=== PATIENT | male | born 1990 | race Caucasian/White ===

== ENCOUNTER 2019-02-14 23:25 | Emergency (ER) | payer SELFPAY ==
[~2019-02-14] VITALS: Ht 172.7 cm; Wt 64.9 kg
[2019-02-14 23:25] VITALS: BP 151/107
--- NOTE | 2019-02-14 23:25 | NUR ---
PT ON BED DELAY IN [facility] WITH [facility].
--- NOTE | 2019-02-14 23:38 | NUR ---
PT SADAF ALS. TAKEN TO BED 4
--- NOTE | 2019-02-14 23:38 | NUR ---
PT TRANSFERED FROM [facility] TO BED 4.
--- NOTE | 2019-02-14 23:41 | NUR ---
Dr. Osei examining patient.
[2019-02-14] MEDS ORDERED: LORazepam 2 MG/ML VIAL IVP ONE (23:50)
[2019-02-14] MEDS ORDERED: NACL 0.9% 1,000 ML IV ONE (23:50)
--- NOTE | 2019-02-14 23:50 | NUR ---
PT REMOVED IV, PIV INTACT. PT AGITATED, DOES NOT WANT A NEW IV, PT STATES HE DOES NOT WANT TO BE TOUCHED AND "LEAVE ME ALONE AND LET ME BREATHE IM RUNNING IN MY MIND".
--- NOTE | 2019-02-14 23:50 | NUR ---
PT BIBA C/O ALOC, PER EMS PT WAS OUTSIDE WORKING ON CAR AND THEN CAME INSIDE OF RESIDENCE AND WAS ALTERED. PT HAS LABORED BREATHING, EXCESSIVE SPEECH, DOES NOT ASNWER QUESTIONS APPROPRIATELY BUT HAS CLEAR SPEECH. PT DOES NOT ANSWER IF HE DRANK ANY ALCOHOL OR USED ANY STREET DRUGS. GIRLFRIEND AT BEDSIDE. SIDE RAILS UP X2.
--- NOTE | 2019-02-15 | NUR ---
PT STILL AGITATED, TAKING OFF LEADS, STATES " I FEEL LIKE MY SKIN IS BURNING" , INSTRUCTED PT ON EFFECTS OF ATIVAN AND FLUIDS, PT STATES "WAIT LET ME BREATHE AND BREATHE WITH ME, SHUT UP".
[2019-02-15] MEDS ORDERED: LORazepam 2 MG/ML VIAL IM ONE (00:05)
--- NOTE | 2019-02-15 00:52 | NUR ---
X-Ray at bedside.
--- NOTE | 2019-02-15 01:48 | NUR ---
PT IS SLEEPING IN BED. NO SIGNS OF DISTRESS. EASILY AROUSABLE. FAMILY AT BEDSIDE. WILL CONTINUE TO MONITOR.
--- NOTE | 2019-02-15 02:09 | NUR ---
VITAL SIGNS TAKEN. VSS. FAMILY AT BEDSIDE. EVEN UNLABORED BREATHING. WILL CONTINUE TO MONITOR.
--- NOTE | 2019-02-15 03:16 | NUR ---
PT EVEN UNLABORED BREATHING. SLEEPING AT THIS TIME. NO SIGNS OF DISTRESS NOTED. FAMILY MEMBERS AT BEDSIDE. UNABLE TO PROVIDE URINE AT THIS TIME. UNABLE TO RESPOND APPROPRIATE AT THIS TIME. WILL CONTINUE TO MONITOR.
--- NOTE | 2019-02-15 03:30 | NUR ---
LABS TECH AT BEDSIDE
[2019-02-15 03:57] LABS: APPEARANCE,URINE CLEAR (CLEAR); BILIRUBIN,URINE NEGATIVE (NEGATIVE); BLOOD, URINE NEGATIVE (NEGATIVE); COLOR,URINE YELLOW (YELLOW); LEUKOCYTE ESTERASE ,URINE NEGATIVE (NEGATIVE); NITRITE, URINE NEGATIVE (NEGATIVE); PH,URINE 7.5 (5.0-9.0); UGLUCOSE NEGATIVE (NEGATIVE)
[2019-02-15 04:00] LABS: CARBON DIOXIDE 24.1 mmol/L (21-32); CHLORIDE 105 mmol/L (98-107); CREATININE 0.7 mg/dL (0.7-1.3); GFR ARICAN-AMERICAN 170 mL/min (>90); GLUCOSE 101 mg/dL (74-106); POTASSIUM 4.1 mmol/L (3.5-5.1); SODIUM SERUM 140 mmol/L (136-145); UREA NITROGEN, BLOOD 11 mg/dL (7-18)
[2019-02-15 04:05] LABS: BARBITURATE, URINE NEG. ng/ml (NEG <=200); BENZODIAZEPINE, URINE NEG. ng/mL (NEG <=200); CANNABINOID, URINE POS. ng/mL (NEG <=50); COCAINE, URINE NEG. ng/mL (NEG <=300); OPIATE, URINE NEG. ng/mL (NEG <=2000); PHENCYCLIDINE SCREEN,URINE NEG. ng/mL (NEG <=25)
[2019-02-15 04:06] LABS: ALBUMIN 3.8 g/dL (3.4-5.0); ASPARTATE AMINOTRANSFERASE 17 U/L (15-37); BASOPHILS % (AUTO) 0.1 % (0.0-2.0); EOSINOPHILS % (AUTO) 0.1 % (0.0-4.0); HEMOGLOBIN 15.1 g/dL (12.0-18.0); LYMPHOCYTES # (AUTO) 1.7 K/uL (2.0-11.5); LYMPHOCYTES % (AUTO) 10.2 % (20.5-51.1); MEAN CORPUSCULAR HEMOGLOBIN 30 pg (27-31); MEAN CORPUSCULAR HGB CONC 34 g/dL (33-37); MEAN CORPUSCULAR VOLUME 87.7 fL (80-94); MONOCYTES # (AUTO) 1.1 K/uL (0.8-1.0); MONOCYTES % (AUTO) 6.3 % (1.7-9.3); NEUTROPHILS # (AUTO) 13.9 K/uL (1.8-7.7); PLATELET COUNT (AUTO) 282 K/uL (140-450); RED BLOOD CELL COUNT(AUTO) 5.02 MIL/uL (4.20-6.10); RED CELL DISTRIBUTION WIDTH 13.2 % (11.6-13.7); WHITE BLOOD COUNT (AUTO) 16.7 K/uL (4.8-10.8)
[2019-02-15 04:07] LABS: ACETAMINOPHEN < 0.5 ug/ml (10-30); SALICYLATE < 2.8 mg/dL (2.8-20.0)
[2019-02-15 04:15] LABS: NEUTROPHILS % (AUTO) 83.3 % (42.2-75.2)
--- NOTE | 2019-02-15 05:06 | NUR ---
PT SLEEPING. NO SIGNS OF DISTRES. EASILY AROUSABLE. EVEN UNLABORED BREATHING. VSS. FAMILY AT BEDSIDE.
--- NOTE | 2019-02-15 06:36 | NUR ---
PT SLEEPING IN BED EASILY AROUSABLE. EVEN UNLABORED BREATHING. FAMILY AT BEDSIDE.
[2019-02-15 06:53] VITALS: BP 124/84
--- NOTE | 2019-02-15 06:53 | NUR ---
Patient discharged with v/s stable. Written and verbal after care instructions given and explained. Patient verbalized understanding. Wheel Chair Assisted with by FAMILY MEMBERS. All questions addressed prior to discharge. Advised to follow up with PMD.
== END 2019-02-15 06:53 | disposition home or self-care (01) ==
LOC: MED 23:25
DX: F15.10 Other stimulant abuse, uncomplicated (principal); F17.210 Nicotine dependence, cigarettes, uncomplicated
CPT/HCPCS: 36415; 71045; 80053; 80305; 81003; 82550; 84484; 85025; 96372; 99284; G0480; G0482; J2060; Q0092